=== PATIENT | male | born 1975 | race African-American/Black ===

== ENCOUNTER → 2017-06-30 | Outpatient (CLI) | payer OTHER ==
--- NOTE | 2017-06-30 11:08 | REP ---
Clinical: Right hip pain. Technique: Neutral and frog lateral views of the right hip. Findings: Irregularity and free calcifications adjacent to the posterior aspect of the acetabulum suggests chronic degenerative change. No acute fracture or dislocation. Impression: Chronic degenerative changes suggested primarily involving the posterior aspect of the acetabulum. Signed by Marcial Decker MD 06/30/2017 11:00 A
--- NOTE | 2017-06-30 11:09 | REP ---
Clinical: Lower back pain. Technique: AP, lateral, bilateral oblique and coned-down views of the lumbosacral spine. Findings: Straightening of normal lordosis may be secondary to positioning versus pain/spasm. Mild degenerative changes include multilevel anterior osteophytes with minimal endplate sclerosis. Subtle disc space narrowing at the L4-5 level is suggested. No acute fracture / compression injury or subluxation. Impression: Mild multilevel degenerative changes. Signed by Marcial Decker MD 06/30/2017 11:01 A
== END ==
LOC: M RAD 09:34
PROVIDERS: ATTEND Surgery
DX: M16.11 Unilateral primary osteoarthritis, right hip (principal); M51.36 Other intervertebral disc degeneration, lumbar region; M25.78 Osteophyte, vertebrae

== ENCOUNTER → 2017-09-09 | Outpatient (CLI) | payer OTHER | LOC: M RAD 10:42 | DX: M51.26 Other intervertebral disc displacement, lumbar region (principal) | CPT/HCPCS: 72148 ==

== ENCOUNTER → 2018-04-02 | Outpatient (CLI) | payer OTHER | LOC: M RAD 09:12 | DX: M25.512 Pain in left shoulder (principal) | CPT/HCPCS: 73030 ==